=== PATIENT | female | born 1980 | race African-American/Black ===

== ENCOUNTER 2016-11-02 12:07 | Emergency (ER) | payer OTHER, MEDICAID ==
[~2016-11-02] VITALS: Ht 160 cm; Wt 127.0 kg
[~2016-11-02 12:07] MED LIST: BACL10TA PO; HYDR-2598 PO
[2016-11-02 15:06] LABS: Albumin 3.1 g/dL (3.4-5.0); BUN/Creatinine Ratio 18.6; Calcium 8.5 mg/dL (8.5-10.1); Potassium 3.9 mmol/L (3.5-5.1)
[2016-11-02 15:09] LABS: Bilirubin, Total 0.2 mg/dL (0.2-1.0); Total Protein 6.9 g/dL (6.4-8.2)
[2016-11-02 15:37] LABS: Basophils # (auto) 0 uL; Basophils % (auto) 0.3 % (0.0-2.0); DEFINITIVE VIEW TRANSMISSION; Eosinophils # (auto) 0.1 uL; Eosinophils % (auto) 0.5 % (0.0-7.0); Hematocrit 37.1 % (36.0-46.0); Hemoglobin 10.9 g/dL (12.2-16.2); Lymphocytes # (auto) 2.9 uL; Lymphocytes % (auto) 21.8 % (10.0-50.0); Mean Corpuscular Hemoglobin 20.9 pg (28.0-32.0); Mean Corpuscular Hgb Conc. 29.6 g/dL (32.0-36.0); Mean Corpuscular Volume 70.6 fL (80.0-100.0); Mean Platelet Volume 11.9 fL (7.4-10.4); Monocytes # (auto) 0.6 uL; Monocytes % (auto) 4.5 % (0.0-12.0); Neutrophils # (auto) 9.5 uL; Neutrophils % (auto) 72.9 % (37.0-80.0); Platelet Count (auto) 266 10^3/uL (140-450); Red Cell Distribution Width 16.3 % (11.6-16.0); SUSPECT VIEW TRANSMISSION; White Blood Cell 13.1 10^3/uL (4.4-10.8)
[2016-11-02] MEDS: methylPREDNISolone SOD SUCC 125 MG/2 ML VL IM ONE (16:15)
[2016-11-02] MEDS: HYDROmorphone HCL 2 MG/ML VL IM ONE (16:15)
[2016-11-02] MEDS: ONDANSETRON HCL 4 MG/2 ML VIAL IM ONE (16:15)
[2016-11-02 16:20] VITALS: BP 147/97
== END 2016-11-02 16:51 | disposition home or self-care (01) ==
LOC: ER 12:10
DX: F41.0 Panic disorder [episodic paroxysmal anxiety] (principal); M32.9 Systemic lupus erythematosus, unspecified; I10 Essential (primary) hypertension; Z98.51 Tubal ligation status; Z90.710 Acquired absence of both cervix and uterus; Z98.890 Other specified postprocedural states; Z88.6 Allergy status to analgesic agent; Z88.0 Allergy status to penicillin; Z88.1 Allergy status to other antibiotic agents
CPT/HCPCS: 36415; 71020; 80053; 85025; 93005; 94761; 96372; 99285; J1170; J2405; J2930

== ENCOUNTER 2016-11-06 15:21 | Emergency (ER) | payer OTHER, MEDICAID ==
[~2016-11-06] VITALS: Ht 160 cm; Wt 127.0 kg
[2016-11-06 16:00] VITALS: BP 130/77
[2016-11-06] MEDS ORDERED: KETOROLAC TROMETH 60MG/2ML VIAL IM ONE (16:15)
[2016-11-06] MEDS ORDERED: ONDANSETRON ODT 4 MG TAB PO ONE (16:15)
[2016-11-06] MEDS ORDERED: methylPREDNISolone SOD SUCC 125 MG/2 ML VL IM ONE (16:15)
== END 2016-11-06 16:39 | disposition home or self-care (01) ==
LOC: ER 15:51
DX: S16.1XXA Strain of muscle, fascia and tendon at neck level, initial encounter (principal); I10 Essential (primary) hypertension; Z88.5 Allergy status to narcotic agent; Z88.8 Allergy status to other drugs, medicaments and biological substances; Z88.1 Allergy status to other antibiotic agents; Z88.0 Allergy status to penicillin; X58.XXXA Exposure to other specified factors, initial encounter; Y93.89 Activity, other specified; Y99.8 Other external cause status; Y92.89 Other specified places as the place of occurrence of the external cause
CPT/HCPCS: 96372; 99284; J1885; J2930; Q0162

== ENCOUNTER 2016-12-20 11:55 | Emergency (ER) | payer OTHER, MEDICAID ==
[~2016-12-20] VITALS: Ht 160 cm; Wt 126.6 kg
[2016-12-20 12:26] VITALS: BP 134/79
== END 2016-12-20 13:04 | disposition home or self-care (01) ==
LOC: ER 11:57
DX: F41.9 Anxiety disorder, unspecified (principal); I10 Essential (primary) hypertension; Z88.6 Allergy status to analgesic agent; Z88.0 Allergy status to penicillin; Z88.8 Allergy status to other drugs, medicaments and biological substances; Z98.51 Tubal ligation status

== ENCOUNTER 2016-12-31 15:22 | Emergency (ER) | payer OTHER, MEDICAID ==
[~2016-12-31] VITALS: Ht 160 cm; Wt 125.2 kg
[2016-12-31 15:50] VITALS: BP 139/86
[2016-12-31] MEDS ORDERED: ONDANSETRON HCL 4 MG/2 ML VIAL IM ONE (17:00)
[2016-12-31] MEDS ORDERED: HYDROmorphone HCL 2 MG/ML VL IM ONE (17:00)
[2016-12-31] MEDS ORDERED: HYDROmorphone HCL 2 MG/ML VL ONE (17:05)
[2016-12-31] MEDS ORDERED: ONDANSETRON HCL 4 MG/2 ML VIAL ONE (17:05)
== END 2016-12-31 17:42 | disposition home or self-care (01) ==
LOC: ER 15:25
DX: R51 Headache (principal); I10 Essential (primary) hypertension
CPT/HCPCS: 82962; 96372; 99284; J1170; J2405

== ENCOUNTER 2017-01-17 14:53 | Emergency (ER) | payer OTHER, MEDICAID ==
[~2017-01-17] VITALS: Ht 160 cm; Wt 117.9 kg
[2017-01-17 16:13] LABS: Basophils # (auto) 0 uL; Basophils % (auto) 0.3 % (0.0-2.0); DEFINITIVE VIEW TRANSMISSION; Eosinophils # (auto) 0.1 uL; Eosinophils % (auto) 0.9 % (0.0-7.0); Hematocrit 37.8 % (36.0-46.0); Hemoglobin 11.9 g/dL (12.2-16.2); Lymphocytes # (auto) 2.9 uL; Lymphocytes % (auto) 24.7 % (10.0-50.0); Mean Corpuscular Hemoglobin 22.3 pg (28.0-32.0); Mean Corpuscular Hgb Conc. 31.6 g/dL (32.0-36.0); Mean Corpuscular Volume 70.6 fL (80.0-100.0); Mean Platelet Volume 12.7 fL (7.4-10.4); Monocytes # (auto) 0.7 uL; Monocytes % (auto) 6.1 % (0.0-12.0); Platelet Count (auto) 222 10^3/uL (140-450); Red Cell Distribution Width 16.3 % (11.6-16.0); SUSPECT VIEW TRANSMISSION; White Blood Cell 11.7 10^3/uL (4.4-10.8)
[2017-01-17 16:16] LABS: Albumin 3.3 g/dL (3.4-5.0); BUN/Creatinine Ratio 16.2; Calcium 8.5 mg/dL (8.5-10.1); Potassium 3.7 mmol/L (3.5-5.1)
[2017-01-17 16:18] LABS: Bilirubin, Total 0.2 mg/dL (0.2-1.0); Total Protein 7.1 g/dL (6.4-8.2)
[2017-01-17 17:17] LABS: Platelet Estimate Adequate
[2017-01-17 17:18] LABS: Giant Platelets Few
[2017-01-17 17:19] LABS: Hypochromia Moderate; Microcytosis Slight
[2017-01-17] MEDS ORDERED: HYDROcodone-ACET 5/325MG TAB PO ONE (22:15)
[2017-01-17 22:48] LABS: Urine Bilirubin Negative (Negative); Urine Blood Negative /uL (Negative); Urine Color Yellow (Yellow); Urine Glucose Normal (Normal); Urine Ketone Negative (Negative); Urine Mucus FEW (None Seen); Urine Nitrite Negative (Negative); Urine RBC 2 /hpf (0 - 4); Urine Squamous Epithelial Cell FEW /hpf (<5); Urine Urobilinogen Normal (Negative)
[2017-01-18 00:16] VITALS: BP 120/66
== END 2017-01-18 00:18 | disposition home or self-care (01) ==
LOC: ER 14:53
DX: R51 Headache (principal); R53.1 Weakness; J44.9 Chronic obstructive pulmonary disease, unspecified; E11.9 Type 2 diabetes mellitus without complications; I10 Essential (primary) hypertension; Z98.51 Tubal ligation status
CPT/HCPCS: 36415; 70450; 80053; 81001; 85025

== ENCOUNTER 2017-02-20 17:27 | Emergency (ER) | payer OTHER, MEDICAID ==
[~2017-02-20] VITALS: Ht 160 cm; Wt 122.5 kg
[2017-02-20 21:31] VITALS: BP 132/83
[2017-02-20] MEDS ORDERED: KETOROLAC TROMETH 60MG/2ML VIAL IM ONE (22:00)
[2017-02-20] MEDS ORDERED: methylPREDNISolone SOD SUCC 125 MG/2 ML VL IM ONE (22:00)
== END 2017-02-21 02:04 | disposition home or self-care (01) ==
LOC: ER 17:32
DX: L93.2 Other local lupus erythematosus (principal); J44.9 Chronic obstructive pulmonary disease, unspecified; E11.9 Type 2 diabetes mellitus without complications; I10 Essential (primary) hypertension; Z98.51 Tubal ligation status; Z90.49 Acquired absence of other specified parts of digestive tract; N83.209 Unspecified ovarian cyst, unspecified side; Z88.6 Allergy status to analgesic agent; Z88.1 Allergy status to other antibiotic agents; Z88.0 Allergy status to penicillin
CPT/HCPCS: 96372; 99284; J1885; J2930

== ENCOUNTER 2017-02-23 19:53 | Emergency (ER) | payer OTHER, MEDICAID ==
[~2017-02-23] VITALS: Ht 160 cm; Wt 122.5 kg
[2017-02-23 21:03] LABS: Basophils # (auto) 0 uL; Basophils % (auto) 0.2 % (0.0-2.0); DEFINITIVE VIEW TRANSMISSION; Eosinophils # (auto) 0.1 uL; Hematocrit 37.9 % (36.0-46.0); Lymphocytes # (auto) 3.5 uL; Lymphocytes % (auto) 24.8 % (10.0-50.0); Mean Corpuscular Hemoglobin 22.3 pg (28.0-32.0); Mean Corpuscular Hgb Conc. 31.7 g/dL (32.0-36.0); Mean Corpuscular Volume 70.4 fL (80.0-100.0); Mean Platelet Volume 11.4 fL (7.4-10.4); Monocytes # (auto) 0.4 uL; Monocytes % (auto) 3.1 % (0.0-12.0); Neutrophils # (auto) 9.9 uL; Neutrophils % (auto) 70.9 % (37.0-80.0); Platelet Count (auto) 272 10^3/uL (140-450); Red Cell Distribution Width 16.5 % (11.6-16.0); SUSPECT VIEW TRANSMISSION; White Blood Cell 13.9 10^3/uL (4.4-10.8)
[2017-02-23 22:35] LABS: Albumin 3.2 g/dL (3.4-5.0); BUN/Creatinine Ratio 13.3; Bilirubin, Total 0.1 mg/dL (0.2-1.0); Calcium 8.3 mg/dL (8.5-10.1); Total Protein 7.2 g/dL (6.4-8.2)
[2017-02-23 23:42] VITALS: BP 138/88
[2017-02-24] MEDS ORDERED: KETOROLAC TROMETH 60MG/2ML VIAL IM ONE (01:15)
[2017-02-24] MEDS ORDERED: cefTRIAXone W LIDOCAINE 1 GM IM IM ONE (01:30)
[2017-02-24] MEDS ORDERED: NITROFURANTOIN (MONO) 100 mg CAP PO ONE (01:45)
== END 2017-02-24 01:50 | disposition home or self-care (01) ==
LOC: ER 19:53
DX: M79.1 Myalgia (principal); D72.829 Elevated white blood cell count, unspecified; F41.9 Anxiety disorder, unspecified; J44.9 Chronic obstructive pulmonary disease, unspecified; E11.9 Type 2 diabetes mellitus without complications; I10 Essential (primary) hypertension; G89.4 Chronic pain syndrome; Z88.0 Allergy status to penicillin; Z88.5 Allergy status to narcotic agent; Z88.1 Allergy status to other antibiotic agents; Z88.8 Allergy status to other drugs, medicaments and biological substances
CPT/HCPCS: 36415; 80053; 85025; 96372; 99284; J1885; J0696

== ENCOUNTER 2017-07-09 19:10 | Emergency (ER) | payer MEDICARE, MEDICAID ==
[~2017-07-09] VITALS: Ht 160 cm; Wt 127.0 kg
[2017-07-09 19:27] VITALS: BP 127/76
[2017-07-09 20:18] LABS: Basophils # (auto) 0.1 uL; Basophils % (auto) 0.7 % (0.0-2.0); Eosinophils # (auto) 0.1 uL; Eosinophils % (auto) 0.9 % (0.0-7.0); Hematocrit 32.1 % (36.0-46.0); Hemoglobin 9.9 g/dL (12.2-16.2); Lymphocytes # (auto) 1.2 uL; Lymphocytes % (auto) 10.4 % (10.0-50.0); Mean Corpuscular Hemoglobin 20.1 pg (28.0-32.0); Mean Corpuscular Hgb Conc. 30.7 g/dL (32.0-36.0); Mean Corpuscular Volume 65.4 fL (80.0-100.0); Mean Platelet Volume 9.8 fL (6.9-10.8); Monocytes % (auto) 8.9 % (0.0-12.0); Neutrophils # (auto) 8.7 uL; Neutrophils % (auto) 79.1 % (37.0-80.0); Platelet Count (auto) 264 10^3/uL (140-450); Red Cell Distribution Width 16.8 % (11.8-14.3); White Blood Cell 11.1 10^3/uL (4.4-10.8)
[2017-07-09 20:37] LABS: Albumin 3.6 g/dL (3.4-5.0); BUN/Creatinine Ratio 14.1; Bilirubin, Total 0.3 mg/dL (0.2-1.0); Calcium 8.6 mg/dL (8.5-10.1); Total Protein 7.9 g/dL (6.4-8.2)
[2017-07-09 21:25] LABS: Hypochromia Moderate; Microcytosis Marked; Platelet Estimate Adequate
== END 2017-07-10 04:53 | disposition left against medical advice (07) ==
LOC: ER 19:13
DX: R50.9 Fever, unspecified (principal); M79.1 Myalgia; R53.1 Weakness; L93.0 Discoid lupus erythematosus; Z53.21 Procedure and treatment not carried out due to patient leaving prior to being seen by health care provider
CPT/HCPCS: 36415; 80053; 85025

== ENCOUNTER 2017-07-10 08:58 | Emergency (ER) | payer MEDICARE, MEDICAID ==
[~2017-07-10] VITALS: Ht 160 cm; Wt 127.0 kg
[2017-07-10 10:20] VITALS: BP 125/68
[2017-07-10] MEDS ORDERED: methylPREDNISolone SOD SUCC 125 MG/2 ML VL IM ONE (11:00)
[2017-07-10] MEDS ORDERED: IPRATROPIUM BROM 0.5 MG/2.5ML INH SOL NEB ONE (11:00)
[2017-07-10] MEDS ORDERED: ALBUTEROL SULF 2.5 MG/0.5ML(0.5%) NEB SOLN NEB ONE (11:00)
== END 2017-07-10 11:30 | disposition home or self-care (01) ==
LOC: ER 08:58
DX: J45.909 Unspecified asthma, uncomplicated (principal); I10 Essential (primary) hypertension; Z90.49 Acquired absence of other specified parts of digestive tract; Z98.51 Tubal ligation status
CPT/HCPCS: 71020; 94640; 96372; 99284; J2930

== ENCOUNTER 2017-09-25 22:55 | Emergency (ER) | payer MEDICARE, MEDICAID ==
[~2017-09-25] VITALS: Ht 162.6 cm; Wt 136.1 kg
[2017-09-26 00:08] LABS: Basophils # (auto) 0 uL; Basophils % (auto) 0.3 % (0.0-2.0); Eosinophils # (auto) 0 uL; Hematocrit 34.1 % (36.0-46.0); Hemoglobin 11.2 g/dL (12.2-16.2); Lymphocytes # (auto) 0.4 uL; Lymphocytes % (auto) 3.8 % (10.0-50.0); Mean Corpuscular Hemoglobin 30.6 pg (28.0-32.0); Mean Corpuscular Hgb Conc. 32.9 g/dL (32.0-36.0); Mean Corpuscular Volume 93.1 fL (80.0-100.0); Monocytes # (auto) 0.6 uL; Monocytes % (auto) 6.1 % (0.0-12.0); Neutrophils # (auto) 9.1 uL; Neutrophils % (auto) 89.8 % (37.0-80.0); Platelet Count (auto) 205 10^3/uL (140-450); Red Blood Cells 3.66 10^6/uL (4.0-5.20); Red Cell Distribution Width 15.1 % (11.8-14.3); White Blood Cell 10.1 10^3/uL (4.4-10.8)
[2017-09-26 00:18] LABS: Albumin 3.3 g/dL (3.4-5.0); BUN/Creatinine Ratio 17.7; Bilirubin, Total 0.2 mg/dL (0.2-1.0); Calcium 8.6 mg/dL (8.5-10.1); Magnesium 2.3 mg/dL (1.6-2.6); Potassium 3.7 mmol/L (3.5-5.1); Total Protein 7.3 g/dL (6.4-8.2)
[2017-09-26] MEDS ORDERED: ASPirin 325 MG TAB PO ONE (04:00)
[2017-09-26] MEDS ORDERED: HYDROcodone-ACET 5/325MG TAB PO ONE (04:00)
[2017-09-26 04:13] VITALS: BP 117/75
[2017-09-26] MEDS ORDERED: ONDANSETRON ODT 4 MG TAB PO ONE (04:15)
== END 2017-09-26 04:16 | disposition home or self-care (01) ==
LOC: EDBD 22:55 → ER 22:55
DX: R07.89 Other chest pain (principal); J44.9 Chronic obstructive pulmonary disease, unspecified; I10 Essential (primary) hypertension; Z98.51 Tubal ligation status; Z90.49 Acquired absence of other specified parts of digestive tract; Z88.0 Allergy status to penicillin; Z88.1 Allergy status to other antibiotic agents; Z88.6 Allergy status to analgesic agent; Z88.5 Allergy status to narcotic agent
CPT/HCPCS: 36415; 70450; 71010; 80053; 83735; 84484; 84702; 85025; 93005; 99285; Q0162

== ENCOUNTER 2017-10-23 14:29 | Emergency (ER) | payer MEDICARE, MEDICAID ==
[~2017-10-23] VITALS: Ht 160 cm; Wt 127.0 kg
[2017-10-23 15:25] LABS: Basophils # (auto) 0 uL; Eosinophils # (auto) 0.1 uL; Hematocrit 30.5 % (36.0-46.0); Hemoglobin 9.3 g/dL (12.2-16.2); Mean Corpuscular Hgb Conc. 30.4 g/dL (32.0-36.0); Monocytes # (auto) 0.8 uL
[2017-10-23 15:26] LABS: Albumin 3.4 g/dL (3.4-5.0); BUN/Creatinine Ratio 19.8; Calcium 8.8 mg/dL (8.5-10.1); Potassium 3.9 mmol/L (3.5-5.1)
[2017-10-23 15:28] LABS: Basophils % (auto) 0.3 % (0.0-2.0); Eosinophils % (auto) 0.8 % (0.0-7.0); Lymphocytes % (auto) 30.4 % (10.0-50.0); Mean Corpuscular Hemoglobin 20.2 pg (28.0-32.0); Mean Corpuscular Volume 66.4 fL (80.0-100.0); Monocytes % (auto) 8.6 % (0.0-12.0); Neutrophils # (auto) 5.8 uL; Neutrophils % (auto) 59.9 % (37.0-80.0); Platelet Count (auto) 230 10^3/uL (140-450); Red Blood Cells 4.59 10^6/uL (4.0-5.20); Red Cell Distribution Width 19.2 % (11.8-14.3); White Blood Cell 9.8 10^3/uL (4.4-10.8)
[2017-10-23 15:29] LABS: Bilirubin, Total 0.2 mg/dL (0.2-1.0); Total Protein 7.2 g/dL (6.4-8.2)
[2017-10-23 16:18] LABS: Urine Bacteria FEW /hpf (None Seen); Urine Blood 2+ /uL (Negative); Urine Mucus FEW (None Seen); Urine Specific Gravity 1.032 (1.001-1.035); Urine WBC 6 /hpf (0 - 5)
[2017-10-23 20:31] VITALS: BP 109/63
== END 2017-10-23 21:17 | disposition home or self-care (01) ==
LOC: ER 14:44
DX: N39.0 Urinary tract infection, site not specified (principal); J44.9 Chronic obstructive pulmonary disease, unspecified; J45.909 Unspecified asthma, uncomplicated; I10 Essential (primary) hypertension; Z90.49 Acquired absence of other specified parts of digestive tract; Z88.0 Allergy status to penicillin; Z88.5 Allergy status to narcotic agent; Z88.8 Allergy status to other drugs, medicaments and biological substances; Z79.891 Long term (current) use of opiate analgesic; Z79.899 Other long term (current) drug therapy
CPT/HCPCS: 36415; 74176; 80053; 81001; 85025

== ENCOUNTER 2018-06-08 18:44 | Emergency (ER) | payer MEDICAID, MEDICARE ==
[~2018-06-08] VITALS: Ht 160 cm; Wt 125.2 kg
[2018-06-08 19:35] LABS: Basophils # (auto) 0.1 uL; Mean Corpuscular Hemoglobin 21.3 pg (28.0-32.0); Neutrophils # (auto) 5.9 uL; Nucleated Red Blood Cells % 0.1 %; White Blood Cell 10.3 10^3/uL (4.4-10.8)
[2018-06-08 19:36] LABS: Basophils % (auto) 1.1 % (0.0-2.0); Eosinophils # (auto) 0.1 uL; Eosinophils % (auto) 1.4 % (0.0-7.0); Hemoglobin 11.6 g/dL (12.2-16.2); Lymphocytes # (auto) 3.3 uL; Lymphocytes % (auto) 31.8 % (10.0-50.0); Mean Corpuscular Hgb Conc. 31.3 g/dL (32.0-36.0); Monocytes # (auto) 0.9 uL; Monocytes % (auto) 8.4 % (0.0-12.0); Neutrophils % (auto) 57.3 % (37.0-80.0); Platelet Count (auto) 190 10^3/uL (140-450); Red Blood Cells 5.44 10^6/uL (4.0-5.20); Red Cell Distribution Width 18.3 % (11.8-14.3)
[2018-06-08 19:48] LABS: Albumin 3.3 g/dL (3.4-5.0); Anion Gap 8 (5-15); Blood Urea Nitrogen 13 mg/dL (7-18); Calcium 8.3 mg/dL (8.5-10.1); Carbon Dioxide 25 mmol/L (21-32); Chloride 106 mmol/L (98-107); Glucose 96 mg/dL (74-106); Magnesium 2.3 mg/dL (1.6-2.6); Sodium 139 mmol/L (136-145)
[2018-06-08 19:50] LABS: Alanine Aminotransferase 19 U/L (13-56); Aspartate Aminotransferase 13 U/L (15-37); BUN/Creatinine Ratio 16.3; GFR African American 103 mL/min; GFR Non-African American 85 mL/min
[2018-06-08 19:57] LABS: Alkaline Phosphatase 80 U/L (45-117); Bilirubin, Total 0.2 mg/dL (0.2-1.0); Total Protein 7.4 g/dL (6.4-8.2)
[2018-06-09 01:30] VITALS: BP 121/78
[2018-06-09] MEDS ORDERED: MEPERIDINE HCL (25 MG/ML) 1ML VIAL IM ONE (01:45)
[2018-06-09] MEDS ORDERED: ONDANSETRON ODT 4 MG TAB PO ONE (01:45)
== END 2018-06-09 02:21 | disposition home or self-care (01) ==
LOC: ER 18:44
DX: R07.89 Other chest pain (principal); M32.9 Systemic lupus erythematosus, unspecified; F41.9 Anxiety disorder, unspecified; J44.9 Chronic obstructive pulmonary disease, unspecified; I10 Essential (primary) hypertension; Z90.49 Acquired absence of other specified parts of digestive tract; Z98.51 Tubal ligation status; Z88.0 Allergy status to penicillin; Z88.6 Allergy status to analgesic agent
CPT/HCPCS: 36415; 80053; 81025; 83735; 84484; 85025; 93005; 96372; 99285; J2175; Q0162

== ENCOUNTER 2024-07-28 15:52 | Inpatient (IN) | payer MEDICAID ==
[~2024-07-28] VITALS: Ht 160 cm; Wt 145.5 kg
[2024-07-28 16:51] LABS: Basophils # (auto) 0.1 10 ^3/uL (0-0.2); Basophils % (auto) 0.5 % (0.0-2.0); Eosinophils # (auto) 0.5 10 ^3/uL (0-0.8); Hematocrit 39.7 % (36.0-46.0); Hemoglobin 12.5 g/dL (12.2-16.2); Lymphocytes # (auto) 3.5 10 ^3/uL (0.4-5.4); Lymphocytes % (auto) 27.1 % (10.0-50.0); Mean Corpuscular Hemoglobin 22.6 pg (28.0-32.0); Mean Corpuscular Hgb Conc. 31.5 g/dL (32.0-36.0); Mean Corpuscular Volume 71.6 fL (80.0-100.0); Monocytes # (auto) 0.9 10 ^3/uL (0-1.3); Monocytes % (auto) 7.1 % (0.0-12.0); Neutrophils % (auto) 61.3 % (37.0-80.0); Platelet Count (auto) 195 10^3/uL (140-450); Red Blood Cells 5.55 10^6/uL (4.0-5.20); Red Cell Distribution Width 14.7 % (11.8-14.3)
[2024-07-28] MEDS: KETOROLAC TROMETH 60MG/2ML VIAL IM ONE (16:54)
[2024-07-28 17:06] LABS: Anion Gap 5 (5-15); Carbon Dioxide 29 mmol/L (20-31); Chloride 106 mmol/L (98-107); Sodium 140 mmol/L (136-145)
[2024-07-28 17:07] LABS: Calcium 9.6 mg/dL (8.7-10.4)
[2024-07-28 17:12] LABS: BUN/Creatinine Ratio 15.3 (10.0-20.0); Blood Urea Nitrogen 13 mg/dL (9-23); Glucose 109 mg/dL (74-106)
[2024-07-28 17:22] LABS: CRP High Sensitivity 1.38 mg/dL (<1.0)
[2024-07-28 17:24] LABS: Urine Bacteria MOD /hpf (None Seen); Urine Blood Negative /uL (Negative); Urine Clarity Turbid (Clear); Urine Color Yellow (Yellow); Urine Mucus FEW (None Seen); Urine Protein, UAD TRACE (Negative); Urine Urobilinogen Normal (Negative); Urine WBC 2 /hpf (0 - 5)
[2024-07-28] MEDS: predniSONE 20 MG TAB PO ONE (17:39)
[2024-07-28 18:01] LABS: Erythrocyte Sedimentation Rate 12 mm/hr (0-20)
[2024-07-28] MEDS: KETOROLAC TROMETH 30 MG/ML 1ML VIAL IV ONE (18:45)
[2024-07-28] MEDS: HYDROcodone-ACET 10/325MG TAB PO ONE (18:55)
[2024-07-28 18:58] VITALS: PULSE 95; RESP 20; O2SAT 93
[2024-07-28 19:20] VITALS: RESP 20; O2SAT 95
[2024-07-28] MEDS ORDERED: ACETAMINOPHEN 325 MG TAB PO PRN (21:45)
[2024-07-28] MEDS ORDERED: MORPHINE SULFATE INJ 2 MG/ml SYRG IV PRN (21:45)
[2024-07-28] MEDS ORDERED: NITROGLYCERIN 0.4 MG SL TAB SL PRN (21:45)
[2024-07-28] MEDS: SODIUM CHLOR 0.9% PF (SALINE LOCK) 10ML VIAL/SYR IV SCH (22:00)
[2024-07-28] MEDS: traMADol HCL 50 MG TAB PO SCH (22:48)
[2024-07-28] MEDS: ENOXAPARIN SOD 40 MG/0.4 ML SYRINGE SC SCH (22:49)
[2024-07-29] VITALS (11 sets, daily range): BP systolic 106–128; BP diastolic 52–79; PULSE 70–97; RESP 16–20; TEMP 97.6–98.9; O2SAT 70–97
[2024-07-29] MEDS ORDERED: IPRATROPIUM BROM 0.5 MG/2.5ML INH SOL NEB PRN (00:45)
[2024-07-29] MEDS ORDERED: ALBUTEROL SULF 2.5 MG/0.5ML(0.5%) NEB SOLN NEB PRN (00:45)
[2024-07-29] MEDS: GABAPENTIN 300 MG CAP PO ONE (01:26)
[2024-07-29] MEDS ORDERED: GABA-339 PO (02:07)
[2024-07-29] MEDS ORDERED: IBUP1TAB5 PO (02:07)
[2024-07-29] MEDS ORDERED: LISI20TA56 PO (02:07)
[2024-07-29] MEDS ORDERED: SEMA1INJ SC (02:07)
[2024-07-29] MEDS ORDERED: HYDR-4072 PO (02:07)
[2024-07-29] MEDS: GABAPENTIN 300 MG CAP PO SCH (06:16)
[2024-07-29] MEDS: PANTOPRAZOLE 40 MG TAB PO SCH (06:16)
[2024-07-29 07:00] LABS: Basophils # (auto) 0 10 ^3/uL (0-0.2); Basophils % (auto) 0.1 % (0.0-2.0); Eosinophils # (auto) 0 10 ^3/uL (0-0.8); Lymphocytes # (auto) 1.7 10 ^3/uL (0.4-5.4); Mean Corpuscular Volume 71.8 fL (80.0-100.0)
[2024-07-29 07:02] LABS: Hematocrit 38.3 % (36.0-46.0); Hemoglobin 12.1 g/dL (12.2-16.2); Lymphocytes % (auto) 15.2 % (10.0-50.0); Mean Corpuscular Hemoglobin 22.7 pg (28.0-32.0); Mean Corpuscular Hgb Conc. 31.7 g/dL (32.0-36.0); Monocytes # (auto) 0.3 10 ^3/uL (0-1.3); Monocytes % (auto) 2.9 % (0.0-12.0); Neutrophils % (auto) 81.8 % (37.0-80.0); Nucleated Red Blood Cells % 0.1 %; Platelet Count (auto) 178 10^3/uL (140-450); Red Blood Cells 5.34 10^6/uL (4.0-5.20)
[2024-07-29 07:22] LABS: Alanine Aminotransferase 13 U/L (7-40); Alkaline Phosphatase 73 U/L (46-116); Anion Gap 8 (5-15); Aspartate Aminotransferase 8 U/L (13-40); Bilirubin, Total 0.3 mg/dL (0.2-1.0); Blood Urea Nitrogen 16 mg/dL (9-23); Calcium 10.3 mg/dL (8.7-10.4); Carbon Dioxide 25 mmol/L (20-31); Chloride 105 mmol/L (98-107); Glucose 160 mg/dL (74-106); Potassium 4.1 mmol/L (3.5-5.1); Sodium 138 mmol/L (136-145); Total Protein 6.7 g/dL (5.7-8.2)
[2024-07-29] MEDS ORDERED: cefTRIAXone 1GM/50ML D5W 50 ML IV SCH (09:00)
[2024-07-29] MEDS: predniSONE 20 MG TAB PO SCH (09:18)
[2024-07-29] MEDS: KETOROLAC TROMETH 30 MG/ML 1ML VIAL IV PRN (11:21)
[2024-07-29] MEDS ORDERED: KETOROLAC TROMETH 30 MG/ML 1ML VIAL IV PRN (12:30)
[2024-07-29] MEDS: HYDROcodone-ACET 10/325MG TAB PO PRN (12:32)
[2024-07-29] MEDS: HYDROmorphone HCL 2 MG/ML VL/or syr IV ONE (13:01)
[2024-07-29] MEDS: ONDANSETRON HCL 4 MG/2 ML VIAL IV PRN (13:02)
[2024-07-29 15:04] LABS: % Iron Saturation 13.1 % (15-50)
[2024-07-30] VITALS (9 sets, daily range): BP systolic 110–138; BP diastolic 63–81; PULSE 76–86; RESP 18–21; TEMP 97.4–98.1; O2SAT 90–96
[2024-07-30] MEDS: HYDROmorphone HCL 2 MG/ML VL/or syr IV PRN (03:17)
[2024-07-30 07:20] LABS: Chloride 105 mmol/L (98-107); Potassium 4.5 mmol/L (3.5-5.1); Sodium 136 mmol/L (136-145)
[2024-07-30 07:21] LABS: Anion Gap 4 (5-15); Calcium 9.5 mg/dL (8.7-10.4); Carbon Dioxide 27 mmol/L (20-31)
[2024-07-30 07:26] LABS: BUN/Creatinine Ratio 18.3 (10.0-20.0); Blood Urea Nitrogen 15 mg/dL (9-23); Glucose 145 mg/dL (74-106)
[2024-07-30 07:58] LABS: Basophils # (auto) 0.5 10 ^3/uL (0-0.2); Eosinophils # (auto) 0 10 ^3/uL (0-0.8); Eosinophils % (auto) 0.1 % (0.0-7.0); Hematocrit 37.5 % (36.0-46.0); Hemoglobin 11.5 g/dL (12.2-16.2); Lymphocytes # (auto) 2.1 10 ^3/uL (0.4-5.4); Lymphocytes % (auto) 16.1 % (10.0-50.0); Mean Corpuscular Hemoglobin 22.1 pg (28.0-32.0); Mean Corpuscular Hgb Conc. 30.6 g/dL (32.0-36.0); Mean Corpuscular Volume 72.3 fL (80.0-100.0); Monocytes # (auto) 0.8 10 ^3/uL (0-1.3); Monocytes % (auto) 6.2 % (0.0-12.0); Neutrophils # (auto) 9.6 10 ^3/uL (1.6-8.6); Neutrophils % (auto) 73.6 % (37.0-80.0); Nucleated Red Blood Cells % 0.1 %; Platelet Count (auto) 165 10^3/uL (140-450); Red Blood Cells 5.19 10^6/uL (4.0-5.20); Red Cell Distribution Width 15.1 % (11.8-14.3); White Blood Cell 13.1 10^3/uL (4.4-10.8)
[2024-07-30 08:06] LABS: Free Thyroxine Index 2.5 (1.2-4.9); Thyroxine (T4) 9.1 ug/dL (4.5-12.0)
[2024-07-30 08:56] LABS: Platelet Estimate Adequate
[2024-07-30 08:57] LABS: Hypochromia Moderate
[2024-07-30] MEDS: POLYETHYLENE GLYCOL 17 GM PWDR PO ONE (21:31)
[2024-07-31] VITALS (8 sets, daily range): BP systolic 96–141; BP diastolic 61–84; PULSE 70–92; RESP 18–20; TEMP 36.7; O2SAT 94–98
[2024-07-31] MEDS: POLYETHYLENE GLYCOL 17 GM PWDR PO SCH (10:30)
[2024-07-31] MEDS ORDERED: PRED20TA2 PO (16:12)
== END 2024-07-31 17:15 | disposition home or self-care (01) | DRG 346 ==
LOC: ER 15:52 → OVERFLOW 21:38 → WEST WING 23:52
PROVIDERS: ADMIT Student in an Organized Health Care Education/Training Program; ATTEND Student in an Organized Health Care Education/Training Program
DX: M06.9 Rheumatoid arthritis, unspecified (principal); M32.9 Systemic lupus erythematosus, unspecified; Z68.43 Body mass index [BMI] 50.0-59.9, adult; M79.7 Fibromyalgia; D50.9 Iron deficiency anemia, unspecified; E66.01 Morbid (severe) obesity due to excess calories; G89.29 Other chronic pain; I10 Essential (primary) hypertension; F41.9 Anxiety disorder, unspecified; D72.829 Elevated white blood cell count, unspecified; J44.89 Other specified chronic obstructive pulmonary disease; M54.50 Low back pain, unspecified; Z90.49 Acquired absence of other specified parts of digestive tract
CPT/HCPCS: 36415; 71045; 80048; 80053; 81001; 82306; 82607; 82728; 83036; 83540; 83550; 83605; 83735; 84100; 84443; 85025; 85652; 86141; 96372; 96374; G0378; J1885; J2405

== ENCOUNTER 2024-08-03 19:25 | Inpatient (IN) | payer MEDICAID ==
[~2024-08-03] VITALS: Ht 160 cm; Wt 130.8 kg
[~2024-08-03 19:25] MED LIST changes: +GABA-339 PO; -HYDR-2598 PO; +HYDR-4072 PO; +IBUP1TAB5 PO; +LISI20TA56 PO; +PRED20TA2 PO; +SEMA1INJ SC
[2024-08-03] MEDS: KETOROLAC TROMETH 30 MG/ML 1ML VIAL IV ONE (20:00)
--- NOTE | 2024-08-03 20:49 | ED.PDOC ---
History of Present Illness HPI Comments 44-year-old female complaining of generalized body pain. Patient states she was admitted and discharged two days ago. States she thought she can handle the pain at home but states the pain has been come to unbearable. States she was a history of fibromyalgia and rheumatoid arthritis. Having a flare-up. Having flare-up of lupus. Chief Complaint: Body Pain Time Seen by MD: 19:41 Primary Care Provider: CHRISSIE Ga Notes: Nurses Notes Allergies: Coded Allergies: Metoclopramide (Verified Allergy, Severe, 06/09/18) Ceftriaxone (Unverified Allergy, Intermediate, SWOLLEN TOUNGE, 06/09/18) Metronidazole (Unverified Allergy, Intermediate, 06/09/18) Codeine (Verified Allergy, Mild, 06/09/18) Cyclobenzaprine (Verified Allergy, Unknown, 07/28/24) Penicillins (Verified Allergy, Unknown, 06/09/18) Remdesivir (Verified Allergy, Unknown, 07/28/24) Morphine (Verified Adverse Reaction, Mild, 06/09/18) RN VERIFIED WITH PATIENT: GOT NAUSEA WHEN ON MORPHINE Home Meds Active Scripts Prednisone (Prednisone) 20 Mg Tab, 20 MG PO DAILY for 14 Days, #14 MG 0 Refills Prov:BIB ALVARADO MD 07/31/24 Reported Medications Semaglutide (Wegovy) 1 Mg/0.5 Ml Inj, 1 MG SC QWEEKLY 07/29/24 Lisinopril (Lisinopril) 20 Mg Tab, 1 TAB PO DAILY 07/29/24 Ibuprofen Micronized (Ibuprofen) 600 Mg Tab, 1 TAB PO TID 07/29/24 Hydrocodone-Acetaminophen (Hydrocodone/Acetaminophen 10-325 mg) 1 Tab Tab, 1 TAB PO TID 07/29/24 Gabapentin (Gabapentin) 600 Mg Tab, 1 TAB PO TID 07/29/24 Baclofen (Baclofen) 10 Mg Tab, 10 MG PO HS, #30 05/06/14 Information Source: Patient Mode of Arrival: Ambulatory Past Medical History PAST MEDICAL HISTORY: Anemia, Anxiety, Asthma, COPD, HTN, Seizures Surgical History: BTL, Cholecystectomy, [employer]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 , 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 Family History Family History: No family hx of DM, No family hx of Heart ulises, No family hx of HTN, No family hx of Lung ulises Social History Smoker: Non-Smoker Alcohol: Denies ETOH Use Drugs: Denies Drug Use Lives In: Home Constitutional: reports: malaise, weakness EENTM: denies: blurred vision, double vision, ear bleeding, ear discharge, ear drainage, ear pain, ear ringing, eye pain, eye redness, hearing loss, mouth pain, mouth swelling, nasal discharge, nose bleeding, nose congestion, nose pain, photophobia, tearing, throat pain, throat swelling, voice changes, others Respiratory: denies: cough, hemoptysis, orthopnea, SOB at rest, shortness of breath, SOB with excertion, stridor, wheezing, others Cardiovascular: reports: chest pain, lightheadedness; denies: dizzy spells, diaphoresis, Dyspnea on exertion, edema, irregular heart beat, left arm pain, palpitations, PND, syncope, others Gastrointestinal: denies: abdomen distended, abdominal pain, blood streaked bowels, constipated, diarrhea, dysphagia, difficulty swallowing, hematemesis, melena, nausea, poor appetite, poor fluid intake, rectal bleeding, rectal pain, vomiting, others Genitourinary: denies: abnormal vagina bleeding, burning, dyspareunia, dysuria, flank pain, frequency, hematuria, incontinence, pain, , vagina discharge, urgency, others Neurological: denies: dizziness, fainting, headache, left sided numbness, left sided weakness, numbness, paresthesia, pre-existing deficit, right sided numbness, right sided weakness, seizure, speech problems, tingling, tremors, weakness, others Musculoskeletal: reports: back pain, joint pain; denies: gout, joint swelling, muscle pain, muscle stiffness, neck pain, others Integumetry: denies: bruises, change in color, change in hair/nails, dryness, laceration, lesions, lumps, rash, wounds, others Allergic/Immunocompromised: denies: Difficulty Healing, Frequent Infections, Hives, Itching, others Physical Exam General Appearance: Moderate Distress HEENT: Normal ENT Inspection, Pharynx Normal, TMs Normal Neck: Full Range of Motion, Non-Tender, Normal, Normal Inspection Respiratory: Chest Non-Tender, Lungs Clear, No Accessory Muscle Use, No Respiratory Distress, Normal Breath Sounds Cardiovascular: No Edema, No JVD, No Murmur, No Gallop, Normal Peripheral Pulses, Regular Rate/Rhythm Breast Exam: Deferred Gastrointestinal: No Organomegaly, Non Tender, No Pulsatile Mass, Normal Bowel Sounds, Soft Genitalia: Deferred Pelvic: Deferred Rectal: Deferred Extremities: No calf tenderness, Normal capillary refill, Normal inspection, Normal range of motion, Non-tender, No pedal edema Musculoskeletal : Apperance: Normal Neurologic: Alert, language instructor II-XII nml as Tested, No Motor Deficits, Normal Affect, Normal Mood, No Sensory Deficits Cerebellar Function: Normal Reflexes: Normal Skin: Dry, Normal Color, Warm Lymphatic: No Adenopathy Was a procedure done? Was a procedure done?: No Differential Dx Considerations may include: RA, fibromyalgia, lupus flare, a retractable pain X-Ray, Labs, Meds, VS Vital Signs Date Time Temp Pulse Resp B/P (MAP) Pulse Ox O2 Delivery O2 Flow Rate FiO2 08/03/24 19:38 98.7 106 24 129/81 (97) 96 X-Ray, Labs, Meds, VS Comment Patient will be admitted for pain control Patient will be admitted for lupus flare, RA flare, fibromyalgia Time of 1ST Reevaluation: 20:49 Reevaluation 1ST: Unchanged Patient Education/Counseling: Diagnosis, Treatment Family Education/Counseling: Diagnosis, Treatment Departure 1 Departure Time of Disposition: 20:48 Impression: Primary Impression: Myalgia Additional Impressions: Autoimmune disorder Complaints of total body pain Pain management Disposition: ADMITTED INPATIENT Condition: Fair Discharged With: Self Critical Care Note Critical Care Time?: No Stability Stability form required: No Heart Score Heart Score: Heart Score Response (Comments) Value History N/A 0 EKG N/A 0 Age N/A 0 Risk Factors N/A 0 Troponin N/A 0 Total 0 CHEVY BOSWELL Aug 03, 2024 20:49
[2024-08-03 21:25] LABS: Basophils # (auto) 0.1 10 ^3/uL (0-0.2); Lymphocytes # (auto) 4.5 10 ^3/uL (0.4-5.4); Mean Corpuscular Hemoglobin 22.6 pg (28.0-32.0); Monocytes # (auto) 0.9 10 ^3/uL (0-1.3)
[2024-08-03 21:26] LABS: Basophils % (auto) 0.7 % (0.0-2.0); Eosinophils # (auto) 0.4 10 ^3/uL (0-0.8); Eosinophils % (auto) 2.4 % (0.0-7.0); Hematocrit 34.2 % (36.0-46.0); Hemoglobin 10.5 g/dL (12.2-16.2); Lymphocytes % (auto) 29.4 % (10.0-50.0); Mean Corpuscular Hgb Conc. 30.8 g/dL (32.0-36.0); Mean Corpuscular Volume 73.5 fL (80.0-100.0); Monocytes % (auto) 6.1 % (0.0-12.0); Neutrophils # (auto) 9.5 10 ^3/uL (1.6-8.6); Neutrophils % (auto) 61.4 % (37.0-80.0); Nucleated Red Blood Cells % 0.2 %; Platelet Count (auto) 173 10^3/uL (140-450); Red Blood Cells 4.65 10^6/uL (4.0-5.20); White Blood Cell 15.4 10^3/uL (4.4-10.8)
[2024-08-03 21:32] LABS: Urine Bacteria FEW /hpf (None Seen); Urine Blood Negative /uL (Negative); Urine Clarity Clear (Clear); Urine Color Light-Yellow (Yellow); Urine Protein, UAD Negative (Negative); Urine Specific Gravity 1.013 (1.001-1.035); Urine Urobilinogen Normal (Negative); Urine WBC 1 /hpf (0 - 5)
[2024-08-03 21:32] LABS: Albumin 3.1 g/dL (3.2-4.8); Alkaline Phosphatase 60 U/L (46-116); Anion Gap 4 (5-15); Aspartate Aminotransferase < 8 U/L (13-40); BUN/Creatinine Ratio 12.9 (10.0-20.0); Bilirubin, Total 0.2 mg/dL (0.2-1.0); Blood Urea Nitrogen 8 mg/dL (9-23); Calcium 7.7 mg/dL (8.7-10.4); Carbon Dioxide 26 mmol/L (20-31); Chloride 111 mmol/L (98-107); Glucose 80 mg/dL (74-106); Potassium 3.6 mmol/L (3.5-5.1); Sodium 141 mmol/L (136-145); Total Protein 5.2 g/dL (5.7-8.2)
[2024-08-03 21:34] LABS: Alanine Aminotransferase 9 U/L (7-40)
[2024-08-04] VITALS (11 sets, daily range): BP systolic 108–130; BP diastolic 60–77; PULSE 77–95; RESP 13–20; TEMP 97.7–98.3; O2SAT 93–98
[2024-08-04] MEDS ORDERED: ACETAMINOPHEN 325 MG TAB PO PRN ×2 (03:00→06:00)
[2024-08-04] MEDS ORDERED: TEMAZEPAM 15 MG CAP PO PRN ×2 (03:00→06:00)
[2024-08-04] MEDS ORDERED: ALBUTEROL SULF 2.5 MG/0.5ML(0.5%) NEB SOLN NEB PRN ×2 (03:00→06:00)
[2024-08-04] MEDS ORDERED: ONDANSETRON HCL 4 MG/2 ML VIAL IV PRN (03:00)
[2024-08-04] MEDS: KETOROLAC TROMETH 30 MG/ML 1ML VIAL IV PRN ×2 (03:42→09:49)
[2024-08-04] MEDS: HYDROcodone-ACET 5/325MG TAB PO PRN ×2 (03:43→09:49)
[2024-08-04] MEDS ORDERED: GABAPENTIN 300 MG CAP PO SCH (06:00)
[2024-08-04] MEDS: GABAPENTIN 300 MG CAP PO SCH (06:01)
[2024-08-04] MEDS: HYDROcodone-ACET 5/325MG TAB PO ONE (06:14)
--- NOTE | 2024-08-04 06:28 | DVHHP2 ---
History of Present Illness Reason for Visit: Body pain History of Present Illness 44-year-old female presents for evaluation of generalized body aches and pain. Patient was discharged two days ago for similar complaints. Patient with a history of rheumatoid arthritis, fibromyalgia and lupus. Reports worsening body aches for the past two days. Denies fever or chills. Denies any other acute complaints at the moment. Past Medical History Rheumatoid arthritis, COPD, hypertension, asthma, lupus, fibromyalgia Past Surgical History , cholecystectomy and BTL Family History Noncontributory Smoke: No ALCOHOL: none Drugs: None Lives: with Family Review of Systems Review of Systems Review of systems are currently negative otherwise dressing HPI Allergies: Coded Allergies: Metoclopramide (Verified Allergy, Severe, 06/09/18) Ceftriaxone (Unverified Allergy, Intermediate, SWOLLEN TOUNGE, 06/09/18) Metronidazole (Unverified Allergy, Intermediate, 06/09/18) Cyclobenzaprine (Verified Allergy, Unknown, 07/28/24) Penicillins (Verified Allergy, Unknown, 06/09/18) Remdesivir (Verified Allergy, Unknown, 07/28/24) Morphine (Verified Adverse Reaction, Mild, 06/09/18) RN VERIFIED WITH PATIENT: GOT NAUSEA WHEN ON MORPHINE Medications Current Medications Medications Dose Ordered Sig/Awais Route Start Time Stop Time Status Last Admin Dose Admin Prednisone 20 mg DAILY PO 08/04/24 10:00 Lisinopril 20 mg DAILY PO 08/04/24 10:00 Albuterol 2.5 mg Q6HPRN PRN NEB 08/04/24 06:00 Gabapentin 600 mg TID PO 08/04/24 06:00 08/04/24 06:01 600 MG Ketorolac Tromethamine 15 mg Q6HPRN PRN IV 08/04/24 06:00 08/09/24 05:59 Acetaminophen/ Hydrocodone Bitart 1 tab Q4HP PRN PO 08/04/24 06:00 Temazepam 15 mg QHSP PRN PO 08/04/24 06:00 Ondansetron HCl 4 mg Q4HP PRN IV 08/04/24 06:00 Acetaminophen 650 mg Q6HP PRN PO 08/04/24 06:00 Exam Vital Signs Vital Signs Date Time Temp Pulse Resp B/P (MAP) Pulse Ox O2 Delivery O2 Flow Rate FiO2 08/04/24 06:00 92 13 120/70 (87) 95 08/04/24 05:55 Nasal Cannula 2.0 08/04/24 05:55 28 08/04/24 03:32 97.7 97.7 Exam Gen: 44-year-old female in mild distress Skin: Warm, dry, normal color and texture, no rash. HEENT: Normocephalic atraumatic, mucous membranes moist and pink. Neck: Cervical and supraclavicular nodes normal without enlargement, trachea is midline, thyroid gland is normal without masses. Pulmonary: Clear to auscultation and percussion bilaterally. Cardiac: Regular rate and rhythm. No murmur Abdomen: Soft, nontender, nondistended, bowel sounds present all 4 quadrants, no guarding, no rigidity, no organomegaly. Extremities: No cyanosis, clubbing, no edema Neuro: Cranial nerves II through XII grossly intact, normal affect and speech, no focal motor deficits. Labs/Xrays Labs Test 08/04/24 03:30 08/03/24 20:55 08/03/24 20:45 Range/Units C-Reactive Protein High Sensitivity 2.06 H <1.0 mg/dL White Blood Count 15.4 H 4.4-10.8 10^3/uL Red Blood Count 4.65 4.0-5.20 10^6/uL Hemoglobin 10.5 L 12.2-16.2 g/dL Hematocrit 34.2 L 36.0-46.0 % Mean Corpuscular Volume 73.5 L 80.0-100.0 fL Mean Corpuscular Hemoglobin 22.6 L 28.0-32.0 pg Mean Corpuscular Hemoglobin Concent 30.8 L 32.0-36.0 g/dL Red Cell Distribution Width 15.0 H 11.8-14.3 % Platelet Count 173 140-450 10^3/uL Mean Platelet Volume 10.4 6.9-10.8 fL Neutrophils (%) (Auto) 61.4 37.0-80.0 % Lymphocytes (%) (Auto) 29.4 10.0-50.0 % Monocytes (%) (Auto) 6.1 0.0-12.0 % Eosinophils (%) (Auto) 2.4 0.0-7.0 % Basophils (%) (Auto) 0.7 0.0-2.0 % Neutrophils # (Auto) 9.5 H 1.6-8.6 10 ^3/uL Lymphocytes # (Auto) 4.5 0.4-5.4 10 ^3/uL Monocytes # (Auto) 0.9 0-1.3 10 ^3/uL Eosinophils # (Auto) 0.4 0-0.8 10 ^3/uL Basophils # (Auto) 0.1 0-0.2 10 ^3/uL Nucleated Red Blood Cells 0.2 % Sodium Level 141 # 136-145 mmol/L Potassium Level 3.6 3.5-5.1 mmol/L Chloride Level 111 H 98-107 mmol/L Carbon Dioxide Level 26 20-31 mmol/L Anion Gap 4 L 5-15 Blood Urea Nitrogen 8 L 9-23 mg/dL Creatinine 0.62 0.550-1.02 mg/dL Glomerular Filtration Rate Calc 112 >90 mL/min BUN/Creatinine Ratio 12.9 10.0-20.0 Serum Glucose 80 74-106 mg/dL Calcium Level 7.7 L 8.7-10.4 mg/dL Total Bilirubin 0.2 0.2-1.0 mg/dL Aspartate Amino Transferase (AST) < 8 L 13-40 U/L Alanine Aminotransferase (ALT) 9 7-40 U/L Alkaline Phosphatase 60 46-116 U/L Total Protein 5.2 L 5.7-8.2 g/dL Albumin 3.1 L 3.2-4.8 g/dL Urine Color Light-yellow Yellow Urine Clarity Clear Clear Urine pH 7.0 5.0-9.0 Urine Specific [place] 1.013 1.001-1.035 Urine Protein Negative Negative Urine Ketones Negative Negative Urine Blood Negative Negative /uL Urine Nitrite Negative Negative Urine Bilirubin Negative Negative Urine Urobilinogen Normal Negative mg/dL Urine Leukocyte Esterase Negative Negative /uL Urine RBC 1 0 - 4 /hpf Urine WBC 1 0 - 5 /hpf Urine Squamous Epithelial Cells Few <5 /hpf Urine Bacteria Few H None Seen /hpf Urine Glucose Normal Normal mg/dL Assessment/Plan Assessment/Plan Assessment Rheumatoid arthritis flare-up Lupus Fibromyalgia Chronic pains Hypertension Plan Admit the patient to Med surge to the hospitalist Resume home medications Pain management Continue treatment per orders. Plan discussed with: Patient My Orders Orders - ANTHONY HENNING AGACN Procedure Category Date Status Time Basic Metabolic Panel LAB 08/05/24 Verified 04:00 Admit ADMIT 08/04/24 Transmitted 03:00 Cardiac DIET 08/04/24 Transmitted Diet-2gna,Lofat,Lochol Breakfast Condition: Stable MEJIA 08/04/24 In Process 03:00 Bedrest With Bathroom MEJIA 08/04/24 In Process Privileg 03:00 Prednisone Tablet PHA 08/04/24 In Process 10:00 Lisinopril Tablet PHA 08/04/24 In Process (Zestril Tablet) 10:00 Albuterol Medneb PHA 08/04/24 In Process (Ventolin Medneb) 06:00 Gabapentin Capsule PHA 08/04/24 In Process (Neurontin Capsule) 06:00 Ketorolac Injection PHA 08/04/24 In Process (Toradol Injection) 06:00 Hydrocodone-Acet PHA 08/04/24 In Process 5/325mg Tab ([place] 06:00 Temazepam (Restoril) PHA 08/04/24 In Process 06:00 Ondansetron Hcl PHA 08/04/24 In Process (Zofran) 06:00 Acetaminophen Tablet PHA 08/04/24 In Process (Tylenol Tablet) 06:00 Date of Service: Aug 04, 2024 Billing Provider: ANTHONY HENNING Common Visit Codes: [id number] INP/OBS CARE (MOD) ANTHONY HENNING Aug 04, 2024 06:28
[2024-08-04] MEDS: predniSONE 20 MG TAB PO SCH (09:48)
[2024-08-04] MEDS: LISINOPRIL 20 MG TAB PO SCH (09:48)
[2024-08-04] MEDS ORDERED: predniSONE 20 MG TAB PO SCH (10:00)
[2024-08-04] MEDS ORDERED: LISINOPRIL 20 MG TAB PO SCH (10:00)
--- NOTE | 2024-08-04 11:05 | DVHPN2 ---
Subjective Continues to complain of generalized body aches and pains, localized in both hips Reviewed: Care Plan, H&P, Labs, Medications Changes from previous H/P or p: No Changes General: Per HPI Objective Vitals Vital Signs Date Time Temp Pulse Resp B/P (MAP) Pulse Ox O2 Delivery O2 Flow Rate FiO2 08/04/24 09:48 121/81 08/04/24 09:26 77 15 95 Room Air* 0 21 08/04/24 09:26 97.9 97.9 General Appearance: Alert, Oriented X3, Cooperative, No acute distress, Other (Denies body aches) HEENT: Atraumatic, PERRLA Neck: Carotid [place] Lungs: Clear to auscultation, Normal air movement Cardiovascular: Normal S1, Normal S2 Abdomen: Normal bowel sounds, Soft, No tenderness Musculoskeletal: Weak motor strength RUE, Weak motor strength LUE, Weak motor strength RLE, Weak motor strength LLE Extremities: No clubbing, No cyanosis, No edema, Normal pulses, No tenderness/swelling Neuro: Normal speech Psych/Mental Status: Mental status NL, Mood NL Medications Current Medications Medications Dose Ordered Sig/Awais Route Start Time Stop Time Status Last Admin Dose Admin Lisinopril 20 mg DAILY PO 08/04/24 10:00 08/04/24 09:48 20 MG Albuterol 2.5 mg Q6HPRN PRN NEB 08/04/24 06:00 Gabapentin 600 mg TID PO 08/04/24 06:00 08/04/24 06:01 600 MG Ketorolac Tromethamine 15 mg Q6HPRN PRN IV 08/04/24 06:00 08/09/24 05:59 08/04/24 09:49 15 MG Acetaminophen/ Hydrocodone Bitart 1 tab Q4HP PRN PO 08/04/24 06:00 08/04/24 09:49 1 TAB Temazepam 15 mg QHSP PRN PO 08/04/24 06:00 Ondansetron HCl 4 mg Q4HP PRN IV 08/04/24 06:00 Acetaminophen 650 mg Q6HP PRN PO 08/04/24 06:00 Prednisone 40 mg DAILY PO 08/05/24 10:00 Laboratory Results Laboratory Tests 08/03/24 20:55 Chemistry Test 08/03/24 20:55 Albumin 3.1 g/dL (3.2-4.8) L Calcium Level 7.7 mg/dL (8.7-10.4) L Total Protein 5.2 g/dL (5.7-8.2) L LFT Test 08/03/24 20:55 Alanine Aminotransferase (ALT) 9 U/L (7-40) Alkaline Phosphatase 60 U/L (46-116) Aspartate Amino Transferase (AST) < 8 U/L (13-40) L Total Bilirubin 0.2 mg/dL (0.2-1.0) Urinalysis Test 08/03/24 20:45 Urine Color Light-yellow (Yellow) Urine Clarity Clear (Clear) Urine pH 7.0 (5.0-9.0) Urine Specific [place] 1.013 (1.001-1.035) Urine Protein Negative (Negative) Urine Ketones Negative (Negative) Urine Blood Negative /uL (Negative) Urine Nitrite Negative (Negative) Urine Bilirubin Negative (Negative) Urine Urobilinogen Normal mg/dL (Negative) Urine Leukocyte Esterase Negative /uL (Negative) Urine RBC 1 /hpf (0 - 4) Urine WBC 1 /hpf (0 - 5) Urine Squamous Epithelial Cells Few /hpf (<5) Urine Bacteria Few /hpf (None Seen) H Urine Glucose Normal mg/dL (Normal) Labs and/or images reviewed: Labs reviewed by me, Image(s) reviewed by me Assessment/Plan Assessment/Plan Impression: -RA flare-up -morbid obesity -hypoalbuminemia -failure of oral steroids -chronic pain syndrome with chronic opiate use -microcytic, hypochromic anemia Plan: -one dose of IV Solu-Medrol 80 mg once, increase prednisone 40 mg daily starting tomorrow -pain management: Restart patient was [place] 10/325, gabapentin -PUD, DVT prophylaxis -has been as tolerated -repeat labs in a.m. Total time spent with patient discussing and formulating plan of care: 35 minutes. This medical document was created using an electronic medical record system with [employer] dictation system. Although this document has been carefully reviewed, there may still be some phonetic and typographical errors. These areas are purely typographical due to imperfections of the software programs, and do not reflect any compromise in the patient's medical care. 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
[2024-08-04] MEDS ORDERED: DICL1GEL73 TOP (11:13)
[2024-08-04] MEDS ORDERED: NALO1TAB4 PO (11:13)
[2024-08-04] MEDS ORDERED: HYDROcodone-ACET 10/325MG TAB PO PRN (11:15)
[2024-08-04] MEDS: OXYCODONE W/ ACETAMINOPHEN 5/325MG TABLET PO PRN (14:19)
[2024-08-04] MEDS: ONDANSETRON HCL 4 MG/2 ML VIAL IV PRN (14:26)
[2024-08-04] MEDS: methylPREDNISolone SOD SUCC 125 MG/2 ML VL IV ONE (16:23)
[2024-08-05] VITALS (8 sets, daily range): BP systolic 110–133; BP diastolic 60–79; PULSE 90–102; RESP 18–20; TEMP 98–98.6; O2SAT 90–95
[2024-08-05 06:16] LABS: Chloride 104 mmol/L (98-107); Potassium 4.5 mmol/L (3.5-5.1); Sodium 137 mmol/L (136-145)
[2024-08-05 06:17] LABS: Anion Gap 6 (5-15); Carbon Dioxide 27 mmol/L (20-31)
[2024-08-05 06:18] LABS: Calcium 9.7 mg/dL (8.7-10.4)
[2024-08-05 06:22] LABS: Glucose 147 mg/dL (74-106)
[2024-08-05 06:23] LABS: BUN/Creatinine Ratio 15.1 (10.0-20.0); Blood Urea Nitrogen 11 mg/dL (9-23)
[2024-08-05] MEDS: predniSONE 20 MG TAB PO SCH (09:39)
[2024-08-05] MEDS ORDERED: PERCOT PO ×2 (11:54→11:56)
[2024-08-05] MEDS ORDERED: PRED20TA2 PO (11:54)
--- NOTE | 2024-08-05 12:57 | DVHDS2 ---
Discharge Summary Date of Admission Aug 04, 2024 at 03:14 Date of Discharge: Aug 05, 2024 Admitting Diagnosis Rheumatoid arthritis flare-up Labs/Diagnostic Data: Laboratory Results Test 08/05/24 05:47 08/03/24 20:55 08/03/24 20:45 Sodium Level 137 mmol/L (136-145) Potassium Level 4.5 mmol/L (3.5-5.1) Chloride Level 104 mmol/L (98-107) Carbon Dioxide Level 27 mmol/L (20-31) Anion Gap 6 (5-15) Blood Urea Nitrogen 11 mg/dL (9-23) Creatinine 0.73 mg/dL (0.550-1.02) Glomerular Filtration Rate Calc 103 mL/min (>90) BUN/Creatinine Ratio 15.1 (10.0-20.0) Serum Glucose 147 mg/dL (74-106) Calcium Level 9.7 mg/dL (8.7-10.4) C-Reactive Protein High Sensitivity 1.31 mg/dL (<1.0) White Blood Count 15.4 10^3/uL (4.4-10.8) Red Blood Count 4.65 10^6/uL (4.0-5.20) Hemoglobin 10.5 g/dL (12.2-16.2) Hematocrit 34.2 % (36.0-46.0) Mean Corpuscular Volume 73.5 fL (80.0-100.0) Mean Corpuscular Hemoglobin 22.6 pg (28.0-32.0) Mean Corpuscular Hemoglobin Concent 30.8 g/dL (32.0-36.0) Red Cell Distribution Width 15.0 % (11.8-14.3) Platelet Count 173 10^3/uL (140-450) Mean Platelet Volume 10.4 fL (6.9-10.8) Neutrophils (%) (Auto) 61.4 % (37.0-80.0) Lymphocytes (%) (Auto) 29.4 % (10.0-50.0) Monocytes (%) (Auto) 6.1 % (0.0-12.0) Eosinophils (%) (Auto) 2.4 % (0.0-7.0) Basophils (%) (Auto) 0.7 % (0.0-2.0) Neutrophils # (Auto) 9.5 10 ^3/uL (1.6-8.6) Lymphocytes # (Auto) 4.5 10 ^3/uL (0.4-5.4) Monocytes # (Auto) 0.9 10 ^3/uL (0-1.3) Eosinophils # (Auto) 0.4 10 ^3/uL (0-0.8) Basophils # (Auto) 0.1 10 ^3/uL (0-0.2) Nucleated Red Blood Cells 0.2 % Total Bilirubin 0.2 mg/dL (0.2-1.0) Aspartate Amino Transferase (AST) < 8 U/L (13-40) Alanine Aminotransferase (ALT) 9 U/L (7-40) Alkaline Phosphatase 60 U/L (46-116) Total Protein 5.2 g/dL (5.7-8.2) Albumin 3.1 g/dL (3.2-4.8) Urine Color Light-yellow (Yellow) Urine Clarity Clear (Clear) Urine pH 7.0 (5.0-9.0) Urine Specific [place] 1.013 (1.001-1.035) Urine Protein Negative (Negative) Urine Ketones Negative (Negative) Urine Blood Negative /uL (Negative) Urine Nitrite Negative (Negative) Urine Bilirubin Negative (Negative) Urine Urobilinogen Normal mg/dL (Negative) Urine Leukocyte Esterase Negative /uL (Negative) Urine RBC 1 /hpf (0 - 4) Urine WBC 1 /hpf (0 - 5) Urine Squamous Epithelial Cells Few /hpf (<5) Urine Bacteria Few /hpf (None Seen) Urine Glucose Normal mg/dL (Normal) Other Laboratory Tests 08/05/24 05:47 08/03/24 20:55 Brief Hx & Hospital Course: History of Present Illness 44-year-old female presents for evaluation of generalized body aches and pain. Patient was discharged two days ago for similar complaints. Patient with a history of rheumatoid arthritis, fibromyalgia and lupus. Reports worsening body aches for the past two days. Denies fever or chills. Denies any other acute complaints at the moment. Course of hospitalization: Patient was found to have elevated CRP at 2.06. She was reporting having severe body aches, more localized in her hips. While in the emergency room the patient had failed pain management treatment with IV Toradol as well as [place] 5/325. Patient was placed on oral prednisone, initially at 20 mg p.o. daily, increased to 40 mg p.o. daily. Patient also received one dose of Solu-Medrol 80 mg IV. CRP has improved to 1.3. Patient also has improved pain management with Percocet. Attempts will be made to have the patient follow up with her log handler for her biologic infusion at an earlier date. At this time she was agreeable to be discharged home. She will be continued on prednisone 40 mg p.o. x2 days, then tapering down to 20 mg p.o. daily x7 days. Further treatment can be followed up with her log handler. The patient will also be given several days prescription of Percocet until flare-up has resolved. She was agreeable with discharge plan. All questions answered. Physical examination General: Alert and Oriented x3. No acute distress. Well-nourished. Eyes: EOMI. Anicteric. HENT: Moist mucous membranes. Lungs: Clear to auscultation bilaterally. No accessory muscle use. Cardiovascular: Regular rate and rhythm. No murmur. No JVD. Abdomen: Soft, non-tender and non-distended. No palpable masses. Extremities: No edema. Non-tender. Skin: No rashes or lesions. Warm. Neurologic: No focal neurological deficits. CN II-XII grossly intact, but not individually tested. Psychiatric: Cooperative. Appropriate mood and affect. Total time spent with patient discussing and formulating plan of care: 35 minutes. This medical document was created using an electronic medical record system with [employer] dictation system. Although this document has been carefully reviewed, there may still be some phonetic and typographical errors. These areas are purely typographical due to imperfections of the software programs, and do not reflect any compromise in the patient's medical care. Condition at Discharge: Fair Final Diagnosis/Problems List Rheumatoid arthritis flare-up Secondary Diagnosis: -morbid obesity -hypoalbuminemia -failure of oral steroids -chronic pain syndrome with chronic opiate use -microcytic, hypochromic anemia Discharge Disposition: Home Discharge Instruct/Medications Diet: Cardiac 2g Na,low cholest Activity: No Restrictions, As Tolerated Follow Up/Referral: Follow up with Dr. Linh Fung within the next 1-2 weeks Medications: Prednisone 40 mg p.o. daily x2 days Prednisone 20 mg p.o. daily x7 days Percocet 10/325 Q 12 hours as needed for [id number] pain 36 Discharge Statement: "Patient was advised to return to the ER or call 911 if any headaches, dizziness, shortness of breath, chest pain, abdominal pain, bleeding, fevers, or worsening of medical condition. Patient was counseled about treatment plan, medications, possible side effects, patientverbalized understanding. All questions were answered to the best of my ability. This discharge took greater then 30 minutes in planning, reviewing documentation, counseling the patient, and discussing with other team members." ASSESSMENT ASSESSMENT Assessment Rheumatoid arthritis flare-up Date of Service: Aug 05, 2024 Billing Provider: AMADEO WRIGHT NP Common Visit Codes: [id number] DISCH DAY >30min AMADEO WRIGHT NP Aug 05, 2024 12:57
== END 2024-08-05 14:00 | disposition home or self-care (01) | DRG 346 ==
LOC: ER 19:25 → OVERFLOW 08-04 03:14 → ER 08-04 03:14 → EAST 08-04 11:19
PROVIDERS: ADMIT Nurse Practitioner; ATTEND Nurse Practitioner Acute Care
DX: M06.8A Other specified rheumatoid arthritis, other specified site (principal); M32.9 Systemic lupus erythematosus, unspecified; E88.09 Other disorders of plasma-protein metabolism, not elsewhere classified; Z68.43 Body mass index [BMI] 50.0-59.9, adult; I10 Essential (primary) hypertension; M79.7 Fibromyalgia; E66.01 Morbid (severe) obesity due to excess calories; D50.9 Iron deficiency anemia, unspecified; J44.89 Other specified chronic obstructive pulmonary disease; G89.4 Chronic pain syndrome; Z87.59 Personal history of other complications of pregnancy, childbirth and the puerperium; Z88.0 Allergy status to penicillin; Z79.891 Long term (current) use of opiate analgesic; Z79.899 Other long term (current) drug therapy; Z88.8 Allergy status to other drugs, medicaments and biological substances
CPT/HCPCS: 36415; 80048; 80053; 81001; 85025; 86141; 96374; G0378; J1885; J2405

== ENCOUNTER → 2025-01-25 | Outpatient (CLI) | payer MEDICAID ==
[~2025-01-25] MED LIST changes: +DICL1GEL73 TOP; +NALO1TAB4 PO; +PERCOT PO
== END | disposition home or self-care (01) ==
LOC: RT 09:00
PROVIDERS: ATTEND Internal Medicine Pulmonary Disease
DX: J45.50 Severe persistent asthma, uncomplicated (principal); Z79.51 Long term (current) use of inhaled steroids
CPT/HCPCS: 94060; 94618; 94727; 94729